=== PATIENT | female | born 1980 | race American Indian/Alaskan Native ===

== ENCOUNTER 2020-12-11 20:34 | Emergency (ER) | payer OTHER ==
[2020-12-11 22:56] LABS: Bacteria,Urine 2+ /HPF (Negative); Bilirubin,Urine NEG (Negative); Blood,Urine MOD (Negative); Color,Urine Yellow (Yellow); Mucus,Urine 3+ /HPF; Urobilinogen,Urine < 2.0 mg/dL (<2.0)
[2020-12-11 23:03] LABS: Protein,Urine >500 mg/dL (Negative)
[2020-12-11 23:06] LABS: Basophils # (Auto) 0.1 K/mm3 (0.0-0.1); Basophils % (Auto) 0.4 % (0.0-1.8); Lymphocytes # (Auto) 1.7 K/mm3 (1.2-5.4); Lymphocytes % (Auto) 12.5 % (13.4-35.0); Mean Corpuscular HGB Conc 34 % (30-34); Mean Corpuscular Volume 91 fl (79-97); Monocytes # (Auto) 0.7 K/mm3 (0.0-0.8); Monocytes % (Auto) 5.1 % (0.0-7.3); Platelet Count 324 K/mm3 (140-440); Red Blood Count 4.82 M/mm3 (3.65-5.03); Red Cell Distribution Width 13.6 % (13.2-15.2)
[2020-12-11 23:10] VITALS: BP 166/98
[2020-12-11 23:19] LABS: Alanine Aminotransferase 20 units/L (7-56); Albumin 4.7 g/dL (3.9-5); BUN/Creatinine Ratio 12; Blood Urea Nitrogen 12 mg/dL (7-17); Calcium 9.7 mg/dL (8.4-10.2); Hemolysis Index 4
[2020-12-12] MEDS ORDERED: DICYCLOMINE 20 MG/2 ML INJ IM ONE (02:27)
[2020-12-12] MEDS ORDERED: ONDANSETRON 4 MG ODT TAB PO ONE (02:27)
--- NOTE | 2020-12-12 02:32 | Emergency Department Report ---
ED General Adult HPI - General Chief complaint: Abdominal Pain Stated complaint: STOMACH CRAMPS,N/V Time Seen by Provider: 12/12/20 02:14 Source: patient Mode of arrival: Ambulatory Limitations: No Limitations - History of Present Illness Initial comments: Patient 40-year-old female history of hypertension who presents for abdominal pain and cramping x1 day. Patient states ingesting some suspicious food on yesterday. Symptoms started after eating. Symptoms include abdominal cramping at 4/10, with nausea and vomiting, with periods of diarrhea. Symptoms are exacerbated by p.o. intake, symptoms are relieved by nothing tried. Patient denies fever or chills, patient denies dysuria, frequency, urgency, hematuria, or vaginal discharge. Last p.o. intake was p.o. liquids this evening. - Related Data Previous Rx's Medication Instructions Recorded Last Taken Type Ciprofloxacin HCl 500 mg PO BID 7 Days #14 tablet 12/12/20 Unknown Rx Ketorolac [Toradol] 10 mg PO Q6H PRN #12 tablet 12/12/20 Unknown Rx Allergies Allergy/AdvReac Type Severity Reaction Status Date / Time No Known Allergies Allergy Unverified 12/11/20 22:26 ED Review of Systems ROS: Stated complaint: STOMACH CRAMPS,N/V Other details as noted in HPI Constitutional: malaise. denies: chills, fever Eyes: denies: eye pain, eye discharge, vision change ENT: denies: ear pain, throat pain Respiratory: denies: cough, shortness of breath, wheezing Cardiovascular: as per HPI Endocrine: no symptoms reported Gastrointestinal: abdominal pain, nausea, vomiting, diarrhea. denies: co nstipation, hematemesis, melena Genitourinary: denies: urgency, dysuria, frequency, hematuria, discharge Musculoskeletal: denies: back pain, joint swelling, arthralgia Skin: denies: rash, lesions Neurological: denies: headache, weakness, paresthesias Psychiatric: denies: anxiety, depression Hematological/Lymphatic: denies: easy bleeding, easy bruising ED Past Medical Hx - Past Medical History Previous Medical History?: Yes Hx Hypertension: Yes Additional medical history: graves disease - Surgical History Past Surgical History?: No - Medications Home Medications: Home Medications Medication Instructions Recorded Confirmed Last Taken Type Ciprofloxacin HCl 500 mg PO BID 7 Days #14 tablet 12/12/20 Unknown Rx Ketorolac [Toradol] 10 mg PO Q6H PRN #12 tablet 12/12/20 Unknown Rx ED Physical Exam - General Limitations: No Limitations General appearance: alert, in no apparent distress - Head Head exam: Present: normocephalic - Eye Eye exam: Present: normal appearance, EOMI Pupils: Present: normal accommodation - ENT ENT exam: Present: mucous membranes moist - Neck Neck exam: Present: normal inspection, full ROM. Absent: tenderness - Respiratory Respiratory exam: Present: normal lung sounds bilaterally. Absent: respiratory distress, wheezes, stridor, chest wall tenderness - Cardiovascular Cardiovascular Exam: Present: regular rate, normal rhythm, normal heart sounds. Absent: systolic murmur, diastolic murmur, rubs, gallop - GI/Abdominal GI/Abdominal exam: Present: tenderness (bilat lower abd ), normal bowel sounds. Absent: distended, guarding, rebound, rigid, bruit, hernia - Rectal Rectal exam: Present: deferred - Extremities Exam Extremities exam: Present: normal inspection, full ROM. Absent: tenderness - Back Exam Back exam: Present: normal inspection, full ROM. Absent: tenderness, CVA tenderness (R), CVA tenderness (L) - Neurological Exam Neurological exam: Present: alert, oriented X3, CN II-XII intact, normal gait - Psychiatric Psychiatric exam: Present: normal affect, normal mood - Skin Skin exam: Present: warm, dry, intact, normal color. Absent: rash ED Course Vital Signs 12/11/20 22:27 Temperature 99.4 F Pulse Rate 63 Respiratory 17 Rate Blood Pressure 166/98 O2 Sat by Pulse 100 Oximetry ED Medical Decision Making - Lab Data Result diagrams: 12/11/20 22:33 12/11/20 22:33 Labs 12/11/20 12/11/20 12/11/20 22:33 22:33 22:33 WBC 13.6 H RBC 4.82 Hgb 15.0 H Hct 44.0 H MCV 91 MCH 31 MCHC 34 RDW 13.6 Plt Count 324 Lymph % (Auto) 12.5 L Forest % (Auto) 5.1 Eos % (Auto) 0.0 Baso % (Auto) 0.4 Lymph # (Auto) 1.7 Forest # (Auto) 0.7 Eos # (Auto) 0.0 Baso # (Auto) 0.1 Seg Neutrophils % 82.0 H Seg Neutrophils # 11.2 H Sodium 138 Potassium 3.7 Chloride 100.1 Carbon Dioxide 24 Anion Gap 18 BUN 12 Creatinine 1.0 Estimated GFR > 60 BUN/Creatinine Ratio 12 Glucose 108 H Calcium 9.7 Total Bilirubin 0.30 AST 18 ALT 20 Alkaline Phosphatase 72 Total Protein 8.1 Albumin 4.7 Albumin/Globulin Ratio 1.4 HCG, Qual Negative Urine Color Urine Turbidity Urine pH Ur Specific Perkins Urine Protein Urine Glucose (UA) Urine Ketones Urine Blood Urine Nitrite Urine Bilirubin Urine Urobilinogen Ur Leukocyte Esterase Urine WBC (Auto) Urine RBC (Auto) U Epithel Cells (Auto) Urine Bacteria (Auto) Urine Mucus 12/11/20 Unknown WBC RBC Hgb Hct MCV MCH MCHC RDW Plt Count Lymph % (Auto) Forest % (Auto) Eos % (Auto) Baso % (Auto) Lymph # (Auto) Forest # (Auto) Eos # (Auto) Baso # (Auto) Seg Neutrophils % Seg Neutrophils # Sodium Potassium Chloride Carbon Dioxide Anion Gap BUN Creatinine Estimated GFR BUN/Creatinine Ratio Glucose Calcium Total Bilirubin AST ALT Alkaline Phosphatase Total Protein Albumin Albumin/Globulin Ratio HCG, Qual Urine Color Yellow Urine Turbidity Cloudy Urine pH 5.0 Ur Specific Perkins 1.016 Urine Protein >500 Urine Glucose (UA) 50 Urine Ketones 20 Urine Blood Mod Urine Nitrite Neg Urine Bilirubin Neg Urine Urobilinogen < 2.0 Ur Leukocyte Esterase Neg Urine WBC (Auto) 25.0 H Urine RBC (Auto) 4.0 U Epithel Cells (Auto) 13.0 Urine Bacteria (Auto) 2+ Urine Mucus 3+ - Radiology Data Radiology results: report reviewed, image reviewed Ordering Physician: SUJATA BLAS NP Date of Service: 12/12/20 Procedure(s): XR abdomen 1V ap Accession Number(s): [id number] cc: SUJATA BLAS NP Fluoro Time In Minutes: ABDOMEN 1 VIEW INDICATION / CLINICAL INFORMATION: abdominal pain. COMPARISON: None available. FINDINGS: TUBES / LINES: None. BOWEL GAS PATTERN: No significant bowel gas pattern. No evidence of obstruction. FREE AIR / EXTRALUMINAL GAS: None. ADDITIONAL FINDINGS: 2 right renal stones are present, largest measuring up to 4 mm. No discrete calcification is seen along the course of either ureter. IMPRESSION: 1. No acute abnormality. No radiographic evidence of obstruction. 2. Right nephrolithiasis. No discrete calcification is seen along the course of either ureter. Signer Name: Jennifer Valdes MD Signed: 12/12/2020 3:42 AM Workstation Name: [id number] Transcribed By: PASQUALE Dictated By: JENNIFER VALDES MD Electronically Authenticated By: JENNIFER VALDES MD Signed Date/Time: 12/12/20341 DD/ 0 TD/TT: - Medical Decision Making KUB is normal ,normal gas pattern, labs noted with WBC of 13, UA with bacteria and WBCs. Patient treated for UTI, patient denies history of renal stone however there is no urinary hesitancy or retention, plan patient will be DC to home with prescriptions, patient will follow-up with primary care doctor in 2 to 3 days. Patient is currently tolerating p.o. intake, patient is alert oriented x3 with steady gait at this time. Patient will be DC'd home in stable condi tion. Critical care attestation.: If time is entered above; I have spent that time in minutes in the direct care of this critically ill patient, excluding procedure time. ED Disposition Clinical Impression: UTI (urinary tract infection) Qualifiers: Urinary tract infection type: acute cystitis Hematuria presence: without hematuria Qualified Code(s): N30.00 - Acute cystitis without hematuria Abdominal pain Qualifiers: Abdominal location: lower abdomen, unspecified Qualified Code(s): R10.30 - Lower abdominal pain, unspecified Disposition: DC-01 TO HOME OR SELFCARE Is pt being admited?: No Does the pt Need Aspirin: No Condition: Stable Instructions: Abdominal Pain (ED), Abdominal Pain, Adult Additional Instructions: take medications as prescribed follow up with pcp in 2-3 dys Prescriptions: Ciprofloxacin HCl 500 mg PO BID 7 Days #14 tablet Ketorolac [Toradol] 10 mg PO Q6H PRN #12 tablet PRN Reason: Pain Referrals: LINUS SANCHEZ MD [Staff Physician] - 3-5 Days Forms: Work/School Release Form(ED) Time of Disposition: 05:07
--- NOTE | 2020-12-12 03:46 | XRay Report ---
ABDOMEN 1 VIEW INDICATION / CLINICAL INFORMATION: abdominal pain. COMPARISON: None available. FINDINGS: TUBES / LINES: None. BOWEL GAS PATTERN: No significant bowel gas pattern. No evidence of obstruction. FREE AIR / EXTRALUMINAL GAS: None. ADDITIONAL FINDINGS: 2 right renal stones are present, largest measuring up to 4 mm. No discrete calc ification is seen along the course of either ureter. IMPRESSION: 1. No acute abnormality. No radiographic evidence of obstruction. 2. Right nephrolithiasis. No discrete calcification is seen along the course of either ureter. Signer Name: Cayetano Sanchez MD Signed: 12/12/2020 3:42 AM Workstation Name: [id number]
[2020-12-12] MEDS ORDERED: KETOROLAC 30 MG/1 ML INJ IV ONE (04:09)
[2020-12-12] MEDS ORDERED: cefTRIAXone/NS 1 GM/50 ML 1 GM/50 ML BAG IV ONE (04:10)
== END 2020-12-12 06:00 | disposition home or self-care (01) ==
LOC: ED 20:34
DX: N39.0 Urinary tract infection, site not specified (principal); R10.9 Unspecified abdominal pain; I10 Essential (primary) hypertension; Z79.899 Other long term (current) drug therapy
CPT/HCPCS: 36415; 74018; 80053; 81001; 84703; 85025; 87086; 96365; 96372; 96375; 99284; J0500; J0696; J1885; Q0162